=== PATIENT | male | born 1985 | race Caucasian/White ===

== ENCOUNTER 2018-06-01 22:01 | Emergency (ER) | payer BC ==
[~2018-06-01] VITALS: Ht 182.9 cm; Wt 96.5 kg
[2018-06-01] MEDS ORDERED: diphenhydrAMINE 50 mg/ml inj IV ONE (22:20)
[2018-06-01] MEDS ORDERED: famotidine/PF 10 mg/ml inj IV ONE (22:20)
[2018-06-01] MEDS ORDERED: dexamethasone sod phosphate 10mg/ml inj IV STA (22:20)
[2018-06-01] MEDS ORDERED: epiNEPHrine 1 mg/ml inj SQ PRN (22:20)
[2018-06-01] MEDS ORDERED: EPIN0.3P8 IM (22:22)
[2018-06-01] MEDS ORDERED: PRED20TA PO (22:22)
[2018-06-01] MEDS ORDERED: normal saline 1000ML IV soln IVB ONE (22:25)
[2018-06-02 00:05] VITALS: BP 133/78
== END 2018-06-02 00:08 | disposition home or self-care (01) ==
LOC: ER 22:02
DX: T63.461A Toxic effect of venom of wasps, accidental (unintentional), initial encounter (principal); Y92.89 Other specified places as the place of occurrence of the external cause; Z79.899 Other long term (current) drug therapy
CPT/HCPCS: 96372; 96374; 96375; 99284; J0171; J1100; J1200; J3490; J7030